=== PATIENT | male | born 1985 | race Caucasian/White ===

== ENCOUNTER 2023-11-09 04:48 | Emergency (ER) | payer BC, SELFPAY ==
[2023-11-09 04:49] VITALS: BP 158/95; PULSE 72; RESP 18; TEMP 36.8; O2SAT 97; BMI 32.2
--- NOTE | 2023-11-09 04:55 | CT_ITS ---
INDICATION: flank pain COMPARISON: None. A radiation dose optimization technique was used for this scan. RADIATION DOSAGE (If Supplied By Facility): CTDIvol/DLP = ( 9.48 ) / ( 566.21 ) mGy/mGycm FINDINGS: Noncontrast serial CT axial images through the abdomen and pelvis with coronal and sagittal reformatted series PANCREAS: No peripancreatic fat stranding. BOWEL/MESENTERY: Distal colonic diverticulosis with significant segmental wall thickening as well as surrounding hazy fat stranding and streaky fluid, consistent with acute diverticulitis. In addition, there is large gas containing fluid collection tracking along the left pelvic sidewall measuring up to 7 x 5 cm, consistent with abscess formation. No dilated bowel loops. No free air. GALLBLADDER: No pericholecystic fat stranding. LIVER/STOMACH: Fatty liver. Hepatomegaly measuring up to 21 cm in the craniocaudal dimension APPENDIX: Normal caliber gas containing appendix. URINARY COLLECTING SYSTEM/ KIDNEYS: No obstructing ureteral calculus. No significant renal parenchymal abnormality. LUNG BASES: Unremarkable. BONES: Unremarkable for age. CT/Abdomen/Pelvis without Cont IMPRESSION: Distal acute diverticulitis with 7 cm abscess as above. Fatty liver with likely associated hepatomegaly. Electronically Signed: Jagdish Ham MD at 6:50 EDT ,
--- NOTE | 2023-11-09 04:55 | EDS_ITS ---
HPI History of Present Illness Chief Complaint: Flank Pain Detail of Chief Complaint: Flank pain Informant: patient Narrative Narrative: Patient presents to the emergency department complaint of pain in his back and lower abdomen and near his anus. Off-and-on symptoms for about 6 days. Patient feels like he needs to strain to urinate at times. Patient thought he was constipated. He now believes he might be passing a kidney stone. He is never passed a kidney stone before. Had low-grade fever at home up to 99. He had nausea but no vomiting. Denies blood in his stool or black tarry stool. PFSH PFSH Home Medications ?Medication ?Instructions ?Recorded ?Last Taken ?Type NK 09/28/20 Unknown History Allergy/AdvReac Type Severity Reaction Status Date / Time No Known Allergies Allergy Verified 11/09/23 04:49 Surgical History (Updated 11/09/23 @ 04:50 by Lenore Plascencia) H/O hernia repair Social History (Updated 09/28/20 @ 13:16 by Agus JC, PA) Smoking Status: Never smoker alcohol intake: never ROS ROS ED Review of Systems ROS Unobtainable: other Constitutional Constitutional ED: Reports lethargy; Denies chills, fever(s), sweats or weight loss Eyes Eyes: Denies blurry vision, change in vision or diplopia ENT ENT ED: Denies rhinorrhea or sore throat Cardiovascular Cardiovascular: Denies chest pain, orthopnea or racing heartbeat Respiratory/Chest Respiratory/Chest: Denies cough, dyspnea, dyspnea on exertion, orthopnea or sputum Gastrointestinal Gastrointestinal: Reports abdominal pain and nausea; Denies diarrhea or vomiting Genitourinary Genitourinary ED: Denies dysuria, hematuria or urinary frequency Musculoskeletal Musculoskeletal: Reports back pain; Denies arthralgias, myalgias or neck pain Integumentary Denies abscess, Abrasions or rash Neurologic Neurologic: Denies headache(s) or weakness Psychiatric Psychiatric: Denies anxiety, depression or suicidal thoughts Endocrine Endocrinology: Denies polydipsia, polyphagia or polyuria Hematologic/Lymphatic Hematologic/Lymphatic: Denies easy bleeding, easy bruising or lymphadenopathy Allergic/Immunologic Allergic/Immunologic ED: Denies mouth swelling, tongue swelling or urticaria EXAM Physical Exam Const Vital Signs: 11/09/23 04:49 11/09/23 06:49 Temperature 98.3 F 98.2 F Temperature Source Temporal Temporal Pulse Rate 72 89 Respiratory Rate 18 14 Blood Pressure 158/95 H 124/79 H Blood Pressure Mean 116 94 Pulse Ox 97 94 Oxygen Delivery Method Room Air Positive well nourished and well developed General Appearance ED: well developed and NAD HEENT Reports TM's clear and moist mucous membranes normocephalic and atraumatic; Negative for trauma or tenderness Tympanic Membrane ED: Yes TM's clear Eyes PERRL and EOMs intact bilaterally General Eye ED: Negative for pale conjunctiva or scleral icterus Neck no lymphadenopathy, supple and no JVD General: Negative for tenderness Chest Wall inspection of chest normal and palpation of chest normal Chest: Negative for tenderness Resp normal respiratory effort and clear to auscultation bilaterally Effort and Inspection: Negative for respiratory distress or pain with movement Auscultation: Negative for rhonchi, wheezes or diminished lung sounds Cardio regular rate, regular rhythm, S1 normal heart sound, S2 normal heart sound and no murmurs Peripheral Pulses: pulses 2+ throughout GI normal to inspection, nondistended, normoactive bowel sounds, soft to palpation, non-distended and no masses GI Narrative: Mild diffuse tenderness palpation over the lower abdomen right lower quadrant and left lower quadrant as well as suprapubic region. There is no rebound, rigidity, or pineal signs. No mass palpated. Back/Spine no thoracic nor lumbar tenderness Back/Spine Narrative: CVA tenderness bilaterally. Extremity normal to inspection General Extremety ED: Negative for edema General Extremity: Negative for edema Neuro oriented x3, CN's II-XII intact bilaterally, no sensory deficits noted and gait normal Sensorium / Orientation: awake, alert, oriented to person, oriented to place and oriented to time Motor Exam: strength 5/5 throughout and strength abnormal Psych mental status grossly normal Skin no rashes or lesions noted and no wounds MDM MDM MDM Narrative Medical decision making narrative: Patient presents with significant abdominal pain and back pain. In the differential would be kidney stone versus diverticular disease versus bowel obstruction or bowel perforation or other acute intra-abdominal process. IV line established. He was medicated initially with Toradol Zofran and Dilaudid. CBC with differential white count of 19.8 with hemoglobin 14.9 and platelet count of 436. Chemistries unremarkable. Lactate was 1.1. LFTs unremarkable. CT scan of the abdomen pelvis shows acute diverticulitis of the sigmoid colon with a diverticular abscess measuring 7 cm. Case discussed with general surgeon on-call Dr. Tian who will discuss case with . Also they want to discuss with radiology to see if the abscess can be drained percutaneously. Care of patient turned over to morning physician awaiting collaboration between physicians and final disposition Lab Data Attestation: I reviewed the patient's lab results. Labs: Laboratory Results - last 24 hr 11/09/23 11/09/23 04:57 05:40 WBC 19.8 H RBC 5.07 Hgb 14.9 Hct 43.7 MCV 86.2 MCH 29.4 MCHC 34.1 RDW Std Deviation 40.0 RDW Coeff of Mimi 12.8 Plt Count 436 MPV 9.6 Immature Gran % (Auto) 0.700 Neut % (Auto) 80.3 H Lymph % (Auto) 10.9 L [place] % (Auto) 6.7 Eos % (Auto) 0.7 Baso % (Auto) 0.7 Absolute Neuts (auto) 15.9 H Absolute Lymphs (auto) 2.15 Nucleated RBC % 0 Sodium 137 Potassium 3.9 Chloride 105 Carbon Dioxide 23.0 Anion Gap 9 BUN 11 Creatinine 1.12 Estim Creat Clear Calc 100.53 Est GFR (MDRD) Af Amer 94 Est GFR (MDRD) Non-Af 78 BUN/Creatinine Ratio 9.8 L Glucose 113 H Lactic Acid 1.1 Calcium 9.8 Total Bilirubin 0.60 AST 17 ALT 37 Alkaline Phosphatase 73 Total Protein 8.5 H Albumin 3.7 Globulin 4.8 H Albumin/Globulin Ratio 0.8 L Radiography Diagnostic Testing: Clinical Impression(s) from Imaging Studies Abdomen/Pelvis CT 11/09/23 04:55 IMPRESSION: Distal acute diverticulitis with 7 cm abscess as above. Fatty liver with likely associated hepatomegaly. Electronically Signed: Jagdish Ham MD at 6:50 EDT , Discharge Plan Triage Chief Complaint: Flank Pain ED Provider: Geena Weldon Dx/Rx/DC Orders Clinical Impression: Diverticulitis, Colonic diverticular abscess Prescriptions: No Action NK Primary Care Provider: Care Physician,No Primary Referrals: NOT,DEFINED [Non-Staff] - Print Language: Kitt[place]
[2023-11-09] MEDS: 0.9% Normal Saline (1000mL) 1,000 ML 150 ML IV (05:11)
[2023-11-09] MEDS: Ondansetron 4 MG/2 ML Vial IV (05:11)
[2023-11-09] MEDS: Ketorolac 30 MG/ML Syringe IV (05:12)
[2023-11-09] MEDS: HYDROmorphone 1 MG/ML Syringe IV ×2 (05:12→06:31)
[2023-11-09 05:21] LABS: ALB/GLOB Ratio 0.8 RATIO (0.9-2.4); AST(SGOT) 17 U/L (15-37); Alanine Aminotransfer ALT/SGPT 37 U/L (16-61); Albumin, Serum 3.7 g/dL (3.2-5.0); Alkaline Phosphatase 73 U/L (45-117); Anion Gap 9 (5-15); BUN 11 mg/dL (7-18); BUN/Creat Ratio 9.8 RATIO (10-20); Calcium,Total 9.8 mg/dL (8.5-10.1); Chloride 105 mmol/L (98-107); Creatinine, Serum 1.12 mg/dL (0.70-1.30); EST Glomerular Filtration Rate 78 mL/min (>60); Est Glom Filt Rate - Afr Amer 94 mL/min (>60); Estimated Creatinine Clearance 100.53 ml/min; Globulin 4.8 g/dL (2.2-4.2); Glucose 113 mg/dL (74-106); Potassium 3.9 mmol/L (3.5-5.1); Protein, Total 8.5 g/dL (6.4-8.2); Sodium Level 137 mmol/L (136-145)
[2023-11-09 06:17] LABS: Absolute Lymphocyte Count 2.15 X10^3/uL (0.83-4.51); Absolute Neutrophil Count 15.9 X10^3/uL (2.0-7.7); Basophil# 0.13 X10^3/uL; Basophil% 0.7 % (0-1); Eosinophil# 0.14 X10^3/uL; Eosinophils% 0.7 % (0-5); Hematocrit 43.7 % (40-54); Hemoglobin 14.9 g/dL (13.0-16.5); Lymphocyte # 2.15 X10^3/ul (0.83-4.51); Lymphocyte % 10.9 % (19-41); Mean Corp Hgb Conc 34.1 g/dL (32-36); Mean Corpuscular Hgb 29.4 pg (27.0-32.0); Mean Corpuscular Volume 86.2 fL (80-94); Mean Platelet Vol. 9.6 fl (6.2-12.0); Monocyte# 1.33 X10^3/uL; Monocyte% 6.7 % (0-10); NRBC Flagged by Analyzer 0 % (0-5); Neutrophil # 15.87 X10^3/uL (2.7-7.7); Neutrophil % 80.3 % (47-70); Platelet Count 436 K/mm3 (150-450); RBC Distribution Width CV 12.8 % (11.6-14.6); Red Blood Count 5.07 M/mm3 (4.6-6.2); White Blood Count 19.8 K/mm3 (4.4-11.0)
[2023-11-09] MEDS: metroNIDAZOLE 500 MG/100 ML BAG 100 MG IV (06:17)
[2023-11-09 06:22] LABS: Lactic Acid 1.1 mmol/L (0.4-1.9)
[2023-11-09 06:49] VITALS: BP 124/79; PULSE 89; RESP 14; TEMP 36.8; O2SAT 94
[2023-11-09] MEDS: Ciprofloxacin 400 MG/200 ML BAG 200 MG IV (07:27)
[2023-11-09 08:00] VITALS: PULSE 69; RESP 14; O2SAT 95
[2023-11-09] MEDS: HYDROmorphone 0.5 MG/0.5 ML SYRINGE IV (08:41)
--- NOTE | 2023-11-09 08:52 | ED.RN ---
Addendum entered by Ambar Orr 11/09/23 08:59: pt accepted at [facility], wait bed Original Note: pt needs transferred, called [facility], wait list, looking for possible other locations with beds. called [facility], to call back after reaching out to surgical team. will update when calls returned.
--- NOTE | 2023-11-09 09:16 | ED.RN ---
attempted to call report. receiving facility states RN is currently occupied and asked to call back with report in 10 min
[2023-11-09 09:21] LABS: Mucous, Urine 0 SEEN /hpf (<or=2+); Red Blood Cells-Urine 0 SEEN /hpf (0-5)
[2023-11-09 09:25] LABS: Color, Urine Yellow (Yellow); Glucose, Dipstick Normal (Normal); Ketone-Dipstick Negative (Negative); Leukocyte Esterase-Dipstick 25 /ul (Negative); Nitrite-Dipstick Negative (Negative); Occult Blood-Urine Negative /ul (Negative); Protein-Dipstick Negative (Negative); Urine Bilirubin Dipstick Negative (Negative); Urine Clarity Clear (Clear); Urine Urobilinogen Normal (Normal); Urine pH 6.5 (5.0 - 8.0)
[2023-11-09 09:31] LABS: Bacteria 1+ /hpf (None Seen); Squamous Epithelial Cells - UA 0-5 SEEN /hpf (0-5); White Blood Cells 0-5 SEEN /hpf (0-5)
[2023-11-09 10:00] VITALS: BP 127/76; PULSE 90; RESP 16; TEMP 36.4; O2SAT 94
[2023-11-09 10:06] VITALS: BP 127/76; PULSE 90; RESP 16; TEMP 36.4; O2SAT 94
== END 2023-11-09 10:47 | disposition short-term general hospital (02) ==
PROVIDERS: Emergency Provider Emergency Medicine; Visit Provider Emergency Medicine
DX: K57.20 Diverticulitis of large intestine with perforation and abscess without bleeding (principal)
CPT/HCPCS: 74176; 80053; 81001; 83605; 85025; 87040; 96365; 96367; 96375; 96376; 99284; J7030; J7050; A4216; J0744; J2405